=== PATIENT | male | born 1990 | race African-American/Black ===

== ENCOUNTER 2024-01-14 11:34 | Emergency (ER) | payer SELFPAY ==
[~2024-01-14] VITALS: Ht 180.3 cm; Wt 68.0 kg
[~2024-01-14 11:34] MED LIST: IBUPROFEN; PEPTO-BISMOL
[2024-01-14 11:44] VITALS: O2SAT 100
[2024-01-14] MEDS: DOXYCYCLINE HYCLATE 100MG CAPSULE PO ONE (12:25)
[2024-01-14] MEDS: KETOROLAC 30MG/ML VIAL IM ONE (12:25)
[2024-01-14] MEDS: CEFTRIAXONE SODIUM 500MG VIAL IM ONE (12:26)
[2024-01-14] MEDS ORDERED: IBUP-2029 MT (14:30)
[2024-01-14] MEDS ORDERED: DOXY-456 MT (14:30)
[2024-01-14 14:41] VITALS: BP 122/63; PULSE 87; RESP 20; TEMP 98.2
== END 2024-01-14 14:42 | disposition home or self-care (01) ==
LOC: ER 11:34
DX: S30.21XA Contusion of penis, initial encounter (principal); W06.XXXA Fall from bed, initial encounter; Y93.89 Activity, other specified; Y92.89 Other specified places as the place of occurrence of the external cause; Y99.8 Other external cause status
CPT/HCPCS: 99285; 93976; 76870; 96372; J0696; J1885